=== PATIENT | female | born 1975 | race African-American/Black ===

== ENCOUNTER 2024-11-10 16:36 | Emergency (ER) | payer OTHER, SELFPAY ==
--- NOTE | 2024-11-10 16:38 | ED_ITS ---
HPI - Recheck/Abnormal Lab/Rx General Chief Complaint: Unspecified Stated Complaint: Blood Pressure Problem Time Seen by Provider: 11/10/24 16:38 Source: patient Mode of arrival: ambulatory Limitations: no limitations History of Present Illness HPI narrative: Brittaney is a 49-year-old female patient presenting to the clinic today with complaints of high blood pressure. She reports this morning when she was drink ing her coffee she felt a little warm and took her blood pressure was systolic of 180s at that time. Denies any headache, visual changes, dizziness, chest pain, or shortness of breath. Has a history of high blood pressure but stop taking her blood pressure medications 1 year ago because it made her urinate a lot. States that her symptoms have resolved from this morning. Blood pressure in the clinic was 155/105 electronically and 152/98 manually. Related Data Home Medications ?Medication ?Instructions ?Recorded ?Confirmed ?Last Taken ?Type No Home Medications 11/10/24 Unknown History Allergies Allergy/AdvReac Type Severity Reaction Status Date / Time No Known Allergies Allergy Verified 11/10/24 16:46 Review of Systems Review of Systems: Pertinent positives per HPI. Patient denies any fever, chills, rash, headache, visual changes, dizziness, cough, runny nose, sore throat, shortness of breath, chest pain, palpitations, nausea, vomiting, diarrhea, constipation, abdominal pain, or any urinary issues. PMFSH Comments At the time of my signature, I reviewed and agree with the nursing past medical, surgical, social, and family history. There is no relevant family history pertinent to the patient complaint. Exam Narrative: General: Well-developed, well nourished, in no apparent distress Head: Normocephalic, atraumatic. Cardio: Regular rate and rhythm, s1 and s2 normal, no murmur appreciated. Resp: Clear to auscultation bilaterally, no rhonchi, rales, wheezing or rubs. Extremities: No deformity, no edema, no cyanosis, capillary refill less than 2 seconds, peripheral pulses palpable and strong. Integumentary: [place], warm, and dry, intact without lesion, no rashes. Course Course Emergency Course: Portions of this record may have been created with voice recognition software. Level of Care: Express Care Visit Vital Signs Vital signs: Vital Signs Temperature 36.6 C 11/10/24 16:46 Pulse Rate 88 11/10/24 16:46 Respiratory Rate 20 11/10/24 16:46 Blood Pressure 155/105 H 11/10/24 16:46 Pulse Oximetry 100 11/10/24 16:46 Oxygen Delivery Room Air 11/10/24 16:46 Temperature 36.6 C 11/10/24 16:46 Pulse Rate 88 11/10/24 16:46 Respiratory Rate 20 11/10/24 16:46 Blood Pressure 152/98 H 11/10/24 16:55 Pulse Oximetry 100 11/10/24 16:46 Oxygen Delivery Room Air 11/10/24 16:46 Vital signs reviewed MDM - Recheck/Abnormal Lab/Rx MDM Narrative Medical decision making narrative: At the time of visit patient is resting comfortably on the exam table. Patient appears to be nontoxic. Complaints of high blood pressure. She reports this morning when she was drinking her coffee she felt a little warm and took her blood pressure was systolic of 180s at that time. Denies any headache, visual changes, dizziness, chest pain, or shortness of breath. Has a history of high blood pressure but stop taking her blood pressure medications 1 year ago because it made her urinate a lot. States that her symptoms have resolved from this morning. Blood pressure in the clinic was 155/105 electronically and 152/98 manually. Plan: Patient has hypertension. Recommend follow-up with PCP to restart on medications. Take blood pressure twice daily for the next week and give this to your PCP. If your blood pressure is 180 systolic or above or you develop shortness of breath, chest pain, dizziness, weakness, visual changes, or headache you need to go the emergency room. Supportive measures were discussed with the patient and they voiced understanding discharge instructions and agrees to treatment plan. Return precautions reviewed Differential Diagnosis Differential diagnosis: Likely other (Hypertension, elevated blood pressure without diagnosis of hypertension, hypertension crisis, hypertension urgency) Discharge Plan Discharge Clinical Impression: Hypertension Qualifiers: Hypertension type: unspecified Qualified Code(s): I10 - Essential (primary) hypertension Patient Disposition: Home Condition: Stable Instructions: Antibiotic Form, Hypertension (ED) Additional Instructions: Blood pressure was 152/98 manually and 155/105 electronic b/p in the clinic today. You have a history of high blood pressure and likely need to be placed back on medications. Take your blood pressure twice daily for the next week and follow-up with your PCP You have an elevated blood pressure in the clinic today and I recommend follow- up with primary care physician to have this reevaluated within the next week if symptoms persist. [place] [employer] guidelines state that normal blood pressure is 120/80 or less. Anything over 120/80 is considered elevated and should be monitored. You may need to decrease you salt intake and eat a heart healthy diet to help lower you blood pressure, other treatments would include decreasing stress, weight loss, stop caffeine, and quit smoking. Your primary care provider can determine whether you need to start antihypertensive medications. Untreated high blood pressure can cause dizziness, headaches, visual changes, blindness, kidney failure, stroke, or a heart attack Patient Language: Icelandic Prescriptions: No Action No Home Medications Follow-up/Referrals: UNKNOWN,DOCTOR [Non-Staff] - Time of Disposition: 16:55 Quality NIHSS Nursing Documentation ED NIHSS nursing documentation: reviewed/agree
--- OUTSIDE RECORDS SUMMARY | 2024-11-10 16:42 | XMS_ITS | Clinical Summary ---
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 Gender Identity Not on file Sexual Orientation Not on file Obstetrics History Para Term AB IAB SAB Ectopic Multiple Livin g Live Births 2 2 2 Date Outcome GA Total Labor Labor/2nd/3rd Weight Sex Type Anes PTL Clarisa A1 A5 Name Clin Term Term Last Filed Vital Signs Vital Sign Reading Time Taken Comments Blood Pressure - - Pulse - - Temperature - - Respiratory Rate - - Oxygen Saturation - - Inhaled Oxygen Concentration - - Weight 72.6 kg (160 lb) 08/21/2021 10:42 AM CDT Height 160 cm (5' 3) 08/21/2021 10:42 AM CDT Body Mass Index 28.34 08/21/2021 10:42 AM CDT Plan of Treatment Health Maintenance Due Date Last Done Comments Cervical Cancer Screening 1976 Colon Cancer Screening-Colonoscopy 1976 Depression Screening 1976 Hepatitis C Screening 1976 DTaP/Tdap/Td Vaccine (1 - Tdap) 1987 Hepatitis B Screening 1994 Regular Well Visit/Exam 18-64 1994 Influenza Vaccine (#1) 2024 Breast Cancer Screening-Mammogram 12/13/2024 12/14/2023, 11/13/2022, 08/21/2021, Additional history exists Pneumococcal vaccine <65 Aged Out No longer eligible based on patient's age to complete this topic Procedures Procedure Name Priority Date/Time Associated Diagnosis Comments SCREENING MAMMOGRAM BILATERAL W ERIC Schedule Routine, Read Routine (OP Routine) 12/14/2023 1:45 PM CDT Screening mammogram, encounter for from Last 3 Months or Most Recently Relevant to Health Maintenance Results * Screening Mammogram Bilateral W Eric (12/14/2023 1:45 PM CDT) Anatomical Region Laterality Modality Breast Bilateral Mammography 12/14/2023 2:13 PM CDT Impressions 12/14/2023 2:13 PM CDT There is no mammographic evidence of malignancy. A 1 year screening mammogram is recommended. BI-RADS: 1 - Negative. The patient has been or will be contacted. The patient will be entered into a reminder system with a target due date of 1 year for her next mammogram. Electronically signed by: John Dalton M.D. Narrative 12/14/2023 2:13 PM CDT EXAMINATION: SCREENING MAMMOGRAM BILATERAL W ERIC ORDERING HEALTHCARE PROVIDER: SELF SCREENING MAMMOGRAM HISTORY: Routine screening mammography. COMPARISON: 11/13/2022, 08/21/2021, 04/03/2020, 08/12/2017 TECHNIQUE: CC and MLO views of the bilateral breasts were obtained with digital technique using breast tomosynthesis with C view. Computer aided detection was utilized. FINDINGS: DENSITY: There are scattered fibroglandular elements in the bilateral breasts. BREASTS: There is no new suspicious finding in either breast on mammogram. us Self Screening Mammogram IMG MAMMO PROCEDURES Fi nal Result from Last 3 Months or Most Recently Relevant to Health Maintenance Insurance [facility] CHO[facility] Care Teams Pre Owned Sales Manager Relationship Specialty Start Date End Date Bashir Hall MD [address] [place] [address] PCP - General Obstetrics and Gynecology 07/28/22 Jaswinder Quinteros MD [address] [place] [address] Consulting Physician Obstetrics and Gynecology 05/21/22
--- OUTSIDE RECORDS SUMMARY | 2024-11-10 16:42 | XMS_ITS | Clinical Summary ---
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 Gender Identity Not on file Sexual Orientation Not on file Plan of Treatment Health Maintenance Due Date Last Done Comments Hepatitis C Virus (HCV) Screening 1976 TdaP Immunization 1976 Hepatitis B Immunization (1 of 3 - 19+ 3-dose series) 1995 Pap Smear 1997 Cervical Cancer Screening (CCS) 2006 HPV/Cotest 2006 Cologuard 2021 Colonoscopy 2021 Colorectal Cancer Screening 2021 Immunochemical Fecal Occult Blood 2021 SARS-COV-2 Immunization ( season) 2023 Influenza Immunization (#1) 2024 Respiratory Syncytial Virus (RSV) Immunization (Adult) (1 - 1-dose 75+ series) 2051 Human Papillomavirus (HPV) Immunization Aged Out No longer eligible b ased on patient's age to complete this topic Meningococcal Immunization (ACWY) Aged Out No longer eligible based on patient's age to complete this topic Pneumococcal Immunization Combined Aged Out No longer eligible based on patient's age to complete this topic Rotavirus Immunization Aged Out No lo nger eligible based on patient's age to complete this topic
[2024-11-10 16:46] VITALS: BP 155/105; PULSE 88; RESP 20; TEMP 36.6; O2SAT 100
[2024-11-10 16:55] VITALS: BP 152/98
== END 2024-11-10 16:59 | disposition home or self-care (01) ==
PROVIDERS: Emergency Provider Nurse Practitioner Family; PCP Nurse Practitioner Family
DX: I10 Essential (primary) hypertension (principal)
CPT/HCPCS: 99202; G0463